=== PATIENT | female | born 1965 | race Two or more races ===

== ENCOUNTER 2016-10-21 14:06 | Emergency (ER) | payer OTHER ==
[~2016-10-21] VITALS: Ht 154.9 cm; Wt 72.6 kg
--- NOTE | 2016-10-21 16:13 | Diagnostic Imaging Report ---
Indication: PAIN, head injury at work, healing wound on the frontal forehead, patient complains of headache and dizziness Technique: Continuous helical CT scanning of the head was performed without intravenous contrast material. Axial and coronal 5 mm sections were generated. Radiation dose was minimized using automated exposure control Dose: Total Dose Length Product - DLP [address] Dose Index - CTDIvol(s) 70.38 mGy. Comparison: None Findings: The ventricular system is normal in size and configuration. There is no shift of midline structures. No abnormal extra-axial fluid collections are noted. There is no evidence of intracerebral bleeding. No other abnormal high or low density areas are noted within the brain. Intact calvarium. Visualized orbits sinuses are unremarkable there is minimal fluid within the right mastoid. Impression: Normal CT scan of the head without contrast material. Incidental finding of minimal right mastoiditis. The CT scanner at [facility] is accredited by the [employer] and the scans are performed using protocols designed to limit radiation exposure to as low as reasonably achievable to attain images of sufficient resolution adequate for diagnostic evaluation.
--- NOTE | 2016-10-21 16:27 | Emergency Room Report ---
History of Present Illness General Chief Complaint: Head Injury Source: Patient Present Illness HPI 51-year-old female presents to emergency department complaining of headache, dizziness, tenderness to the top of her head since yesterday. Patient states that while at work a pole fell on top of her head she denies bleeding at this time patient denies taking blood thinning medications. Patient reports nausea denies vomiting. Patient also reports feeling tired and weak. She denies neck pain or stiffness . States she is taking Tylenol with moderate relief of her pain however she is concerned that she was not evaluated and that her pain continues to return with dizziness. Denies photophobia. Denies numbness tingling or loss of sensation or gross motor movements of the extremities, incontinence of bowel or bladder. Denies CP, Palpitations, LOC, AMS, dizziness, Changes in Vision, Sensation, paresthesias, or a sudden severe headache. Allergies: Coded Allergies: No Known Allergies (Unverified , 10/21/16) Patient History Past Medical History: see triage record Past Surgical History: none Pertinent Family History: none Now: No Immunizations: UTD Reviewed Nursing Documentation: PMH: Agreed, PSxH: Agreed Nursing Documentation-PMH Past Medical History: No Stated History Review of Systems All Other Systems: negative except mentioned in HPI Physical Exam Vital Signs Date Time Temp Pulse Resp B/P Pulse Ox O2 Delivery O2 Flow Rate FiO2 10/21/16 14:41 98.1 77 16 130/57 98 Room Air Sp02 EP Interpretation: reviewed, normal General Appearance: no apparent distress, alert, GCS 15, non-toxic Head: normocephalic, other - small scalp abrasion less than 1cm non-bleeding, non infected. Eyes: bilateral eye EOMI, bilateral eye PERRL, bilateral eye normal inspection ENT: hearing grossly normal, normal pharynx, no angioedema, normal voice, TMs + canals normal, uvula midline, other Neck: full range of motion, no meningismus, no bony tend, supple/symm/no masses Respiratory: chest non-tender, lungs clear, normal breath sounds, speaking full sentences Cardiovascular #1: regular rate, rhythm, no edema Musculoskeletal: back normal, gait/station normal, normal range of motion, tender - mild ttp to the right parietal and top of the scalp. Neurologic: alert, oriented x3, responsive, motor strength/tone normal, sensory intact, cerebellar normal, normal gait, speech normal, no pronator, other - negative ahumada's Psychiatric: judgement/insight normal, memory normal, mood/affect normal, no suicidal/homicidal ideation Skin: normal color, no rash, warm/dry, well hydrated, abrasions - small scalp abrasion less than 1cm in size. Lymphatic: no adenopathy Medical Decision Making PA Attestation Dr. Vargas is my supervising Physician whom patient management has been discussed with. Diagnostic Impression: Primary Impression: Contusion of head Qualified Codes: S00.93XA - Contusion of unspecified part of head, initial encounter Additional Impressions: Mastoiditis Qualified Codes: H70.91 - Unspecified mastoiditis, right ear Scalp abrasion, non-infected ER Course 51-year-old female presents to emergency department complaining of headache, dizziness, tenderness to the top of her head since yesterday. Patient states that while at work a pole fell on top of her head she denies bleeding at this time patient denies taking blood thinning medications. Patient reports nausea denies vomiting. Patient also reports feeling tired and weak. She denies neck pain or stiffness . States she is taking Tylenol with moderate relief of her pain however she is concerned that she was not evaluated and that her pain continues to return with dizziness. - Denies Loss of consciousness Ddx considered but are not limited to Fracture, dislocation, contusion, concussion Sprain/Strain/Spasm, concussion, subdural hematoma, ICH Vital signs: are WNL, pt. is afebrile H&PE are most consistent with contusion, no evidence of focal neurological deficit, no loss of consciousness. ORDERS: -CT head no Contrast: No evidence of acute fracture, hemorrhage, or intracranial process , incidental finding of right mastoiditis, mild - Per: official radiology report. ED INTERVENTIONS: - Denies PO pain medication, pt. states she just took some while waiting in the waiting room. -D/w pt the results of imaging: d/w pt. treatment for mastoiditis, and to follow up with her employer. DISCHARGE: At this time pt. is stable for d/c to home. Will provide printed patient care instructions, and any necessary prescriptions. Care plan and follow up instructions have been discussed with the patient prior to discharge. Last Vital Signs Date Time Temp Pulse Resp B/P Pulse Ox O2 Delivery O2 Flow Rate FiO2 3/9/17 14:41 98.1 77 16 130/57 98 Room Air Disposition: HOME, SELF-CARE Condition: Stable Scripts Acetaminophen* (TYLENOL EXTRA STRENGTH*) 500 Mg Tablet 500 MG ORAL Q6H, #30 TAB 0 Refills Prov: Edith Bernard 10/21/16 Ondansetron Odt* (ZOFRAN ODT*) 4 Mg Tab.rapdis 4 MG ORAL Q6H Y for Nausea & Vomiting, #30 TAB Prov: Edith Bernard 10/21/16 Amoxicillin/Potassium Clav 875-125* (AUGMENTIN 875-125 TABLET*) 1 Each Tablet 1 TAB ORAL TWICE A DAY for 10 Days, #20 TAB Prov: Edith Bernard 10/21/16 Referrals: NOT CHOSEN IPA/,REFERRING (PCP) Patient Instructions: Mastoiditis, Pediatric Additional Instructions: Take medications as directed. Follow up with PCP in 3-5 days Return sooner to ED if new symptoms occur, or current symptoms become worse. - Please note that this Emergency Department Report was dictated using YouEyedining room tables set up attendant technology software, occasionally this can lead to erroneous entry secondary to interpretation by the dictation equipment. Edith Bernard Oct 21, 2016 16:27
[2016-10-21] MEDS ORDERED: AUGMENTIN 875-1 EAC1 ORAL (16:30)
[2016-10-21] MEDS ORDERED: ZOFRAN ODT4 MG ORAL (16:30)
[2016-10-21] MEDS ORDERED: TYLENOL EXTRA500 MG ORAL (16:30)
[2016-10-21 16:52] VITALS: BP 126/86
== END 2016-10-21 16:53 | disposition home or self-care (01) ==
LOC: EMR 15:12
DX: S00.93XA Contusion of unspecified part of head, initial encounter (principal); S00.01XA Abrasion of scalp, initial encounter; W20.8XXA Other cause of strike by thrown, projected or falling object, initial encounter; Y93.9 Activity, unspecified; Y92.9 Unspecified place or not applicable; Y99.9 Unspecified external cause status; H70.91 Unspecified mastoiditis, right ear; R42 Dizziness and giddiness; R51 Headache
CPT/HCPCS: 70450; 99284